=== PATIENT | male | born 1975 | race Caucasian/White ===

== ENCOUNTER 2022-04-04 17:44 | Emergency (ER) | payer OTHER ==
[~2022-04-04] VITALS: Ht 185.4 cm; Wt 83.9 kg
--- NOTE | 2022-04-04 18:41 | NUR ---
at bedside exam in progress.
[2022-04-04] MEDS ORDERED: HYDR-3972 PO (18:46)
[2022-04-04] MEDS ORDERED: HYDROCODONE/APAP 10-325 MG TABLET ONE (18:57)
[2022-04-04] MEDS ORDERED: HYDROCODONE/APAP 10-325 MG TABLET PO ONE (19:00)
--- NOTE | 2022-04-04 19:04 | NUR ---
DCD instructions and prescription given to pt. who verbalized understanding. pt. provided with tray before sent home.
== END 2022-04-04 19:17 | disposition home or self-care (01) ==
LOC: ER 17:48
DX: G89.29 Other chronic pain (principal); M25.562 Pain in left knee; M25.561 Pain in right knee; M79.672 Pain in left foot; M79.671 Pain in right foot; Z59.00 Homelessness unspecified; F17.210 Nicotine dependence, cigarettes, uncomplicated
CPT/HCPCS: A4663

== ENCOUNTER 2022-04-06 11:51 | Inpatient (IN) | payer OTHER ==
[~2022-04-06] VITALS: Ht 185.4 cm; Wt 86.8 kg
[~2022-04-06 11:51] MED LIST: HYDR-3972 PO
--- NOTE | 2022-04-06 12:48 | NUR ---
[email or web address], medical screening exam in progress
[2022-04-06] MEDS ORDERED: TETRACAINE HCL 0.5% OPHT DROP 2 ML BOTTLE ONE (12:56)
[2022-04-06] MEDS ORDERED: FLUORESCEIN SODIUM 1 MG STRIP ONE ×2 (12:56)
[2022-04-06] MEDS ORDERED: TETRACAINE HCL 0.5% OPHT DROP 2 ML BOTTLE OP ONE (13:00)
[2022-04-06] MEDS ORDERED: THIAMINE HCL 200 MG/2 ML VIAL IV ONE ×2 (13:00→14:15)
[2022-04-06] MEDS ORDERED: THIAMINE HCL 200 MG/2 ML VIAL ONE ×2 (13:00→14:25)
[2022-04-06] MEDS: FLUORESCEIN SODIUM 1 MG STRIP OP ONE ×2 (13:06→13:20)
[2022-04-06 13:17] LABS: MEAN CORPUSCULAR HEMOGLOBIN 31.9 uug (23.8-33.4); MEAN CORPUSCULAR VOLUME 93.8 fL (73.0-96.2); PLATELET COUNT (AUTO) 261 K/uL (152-348)
[2022-04-06 13:27] LABS: CARBON DIOXIDE 28 mmol/L (21-32); CHLORIDE 110 mmol/L (98-107); CREATININE 1.1 mg/dL (0.6-1.3); GLUCOSE 85 mg/dL (74-106); POTASSIUM 4.4 mmol/L (3.5-5.1); UREA NITROGEN, BLOOD 21 mg/dL (7-18)
[2022-04-06 13:36] LABS: ALANINE AMINOTRANSFERASE 82 U/L (16-63); ALKALINE PHOSPHATASE 50 U/L (50-136); ASPARTATE AMINOTRANSFERASE 42 U/L (15-37); BILIRUBIN,DIRECT < 0.1 mg/dL (0.0-0.2); BILIRUBIN,TOTAL 0.3 mg/dL (0.2-1.0); TOTAL PROTEIN, SERUM 6.7 g/dL (6.4-8.2)
--- NOTE | 2022-04-06 14:03 | NUR ---
Social work consult was requested for a patient in the emergency room for homeless resources. Patient is 46-year-old male. Patient appears alert and oriented X4. Patient presents with anxious mood and congruent affect. Patient was cooperative throughout assessment. Patient states his primary contact is his sister, Lindsey Christie, but patient does not have her phone number. Patient states he has been homeless for one year in [place]. ANAHI provided the patient resources and gave him the information for [facility] [place] [address] [place] [address] ([phone]) and [facility] [address] [facility] [address] ([phone]). ANAHI gave resources for [place] [facility] [address] [address]. Resources were placed in the chart. Homeless waiver was signed and given to the patient and a copy was placed in the chart. 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 Patient states that he has a history of heroin abuse but has been sober for 9 years. There is no toxicology report. SW intervened and educated patient regarding the harmful effects of heroin. ANHAI provided the patient resources and referrals for substance use from [facility] [address] [facility] [address] ([phone]), [facility] [address] [facility] [address] ([phone]), and [address] [address] ([phone]). Patient appeared appreciative of resources. Resources were placed in the chart. Patient states he has a history of depression. Patient states he has never seen a therapist. SW provided emotional support, validation and coping strategies. Patient denies suicidal or homicidal ideation. Patient denies visual or auditory hallucinations or delusions. ANAHI provided the patient with the mental health walk in resource at [facility] [address] [place] [address] ([phone]). Patient states he will follow-up with making his own arrangements for a living arrangement using the resources provided. Patient states he received a TAP card from his last emergency room visit two days ago.
--- NOTE | 2022-04-06 14:23 | NUR ---
Nasal swab for COVID collected and sent to LAB.
[2022-04-06] MEDS ORDERED: CEFTRIAXONE /D5W 50ML IVPB **ER PYXIS IV ONE (16:15)
--- NOTE | 2022-04-06 17:51 | NUR ---
patient to be admitted to telemetry for thrombocytosis, elevated D-Dimer, and SOB. Accepting MD is , from . pt is aware of admission plan. i called Tele, unable to transfer pt at this time due to short staffing.
[2022-04-06 17:59] LABS: ETHANOL < 3 MG/DL (0-0)
--- NOTE | 2022-04-06 19:47 | NUR ---
Assumed care of pt, pt found resting in bed. alert and oriented x3. per report, pt is c/o bilateral eye pain, described as a burning feeling/ pt denies trauma or foriegn body introduction. pt sts he was just "sitting there" when pain began, pt believes its because he was outside without sunglasses, pt does not own sunglasses. MD performed optic examination utilising flores lamp and discovered no foriegn body. Upon further examination pt admited to feeling increasingly confused and forgetful "recently" (unable to define a length of time). pt is unable to maintain vision straight forward without twitching of the eyes. MD is concerned pt is encephalopic. Labs are unremarkable. Pt awaiting admission for further workup and investigation. pt aware of plan of care.
--- NOTE | 2022-04-06 21:00 | NUR ---
pt continues to rest in bed, easily arousable, no significant change in assessment from last, continues to wait for room assignment
[2022-04-06] MEDS ORDERED: ONDANSETRON 4 MG/2 ML VIAL IV PRN (22:30)
[2022-04-06] MEDS ORDERED: HYDROCODONE/APAP 5-325MG TABLET PO PRN (22:30)
[2022-04-06] MEDS ORDERED: LORAZEPAM 0.5 MG TABLET PO PRN (22:30)
[2022-04-06] MEDS ORDERED: MAGNESIUM HYDROXIDE 30 ML LIQUID UDC PO PRN (22:30)
[2022-04-06] MEDS ORDERED: ACETAMINOPHEN 325 MG TABLET PO PRN (22:30)
--- NOTE | 2022-04-06 23:04 | NUR ---
Room assigned, report given to expressive music therapist, all questions answered. pt transported to floor via wheelchair by RN. vitals stable, NAD noted. Care assumed at bedside by expressive music therapist
--- NOTE | 2022-04-07 00:12 | NUR ---
Transfered to 3rd floor via wheelchair with no distress noted.
--- NOTE | 2022-04-07 00:15 | NUR ---
Admitted a 46 years old male with Dx of AMS. Patient AAOx3. in no apparent distress. Denies any SOB. Complain of pain on bilateral LE., described as sharp pain 8/10. IV site on right FA intact and patent. NSR on tele with HR of 60/min. Patient wishes to be DNR. CECILE Taylor made aware and obtain order to DNR status. Will carry out order. Routine admission care done. Plan of care initiated. Safety measure initiated and call light within reached.
[2022-04-07 00:50] VITALS: BP 121/81
[2022-04-07 04:24] VITALS: BP 111/75
--- NOTE | 2022-04-07 05:14 | NUR ---
Patient slept well after admission. Did not complain of further pain on bilateral LE. NSR on tele with HR of 54/min. IV site on left FA remains intact and patent. Safety measure maintained and call light within reached.
[2022-04-07 05:43] LABS: *BILIRUBIN,URIN NEGATIVE (NEGATIVE); *BLOOD, URINE NEGATIVE (NEGATIVE); *CLARITY,URINE CLEAR (CLEAR); *COLOR,URINE YELLOW (YELLOW); *KETONES,URINE NEGATIVE (NEGATIVE); *UROBILINOGEN,URINE 0.2 E.U./dl (NORMAL); LEUKOCYTE ESTERASE ,URINE NEGATIVE (NEGATIVE); NITRITE, URINE NEGATIVE (NEGATIVE); UGLUCOSE NEGATIVE (NEGATIVE)
[2022-04-07 05:52] LABS: *AMPHETAMINE, URINE NEGATIVE (NEGATIVE); *CANNABINOID, URINE NEGATIVE (NEGATIVE); *COCCAINE, URINE NEGATIVE (NEGATIVE); *OPIATE, URINE NEGATIVE (NEGATIVE); *PHENCYCLIDINE SCREEN,URINE NEGATIVE (NEGATIVE)
[2022-04-07 06:53] LABS: HEMATOCRIT 37.2 % (36.7-47.1); MEAN CORPUSCULAR HEMOGLOBIN 32.2 uug (23.8-33.4); MEAN CORPUSCULAR VOLUME 93.9 fL (73.0-96.2); PLATELET COUNT (AUTO) 243 K/uL (152-348)
[2022-04-07] MEDS ORDERED: PANTOPRAZOLE SODIUM 40 MG TABLET.DR PO SCH (07:00)
[2022-04-07 07:03] LABS: BILIRUBIN,TOTAL 0.3 mg/dL (0.2-1.0); CREATININE 0.8 mg/dL (0.6-1.3); MAGNESIUM 1.6 mg/dL (1.8-2.4); PHOSPHOROUS 3.1 mg/dL (2.5-4.9); POTASSIUM 4.1 mmol/L (3.5-5.1); TOTAL PROTEIN, SERUM 6.5 g/dL (6.4-8.2)
--- NOTE | 2022-04-07 07:15 | NUR ---
Received pt. in bed sleeping AAOx4. vitals stable no c/of pain. IV access patent.
[2022-04-07 07:40] LABS: THYROID STIMULATING HORMONE 2.563 mIU/mL (0.358-3.740)
[2022-04-07] MEDS ORDERED: FLUTICASONE PROP NASAL SPRAY 16 GM BOTTLE NS SCH (09:00)
[2022-04-07] MEDS ORDERED: FOLIC ACID 1 MG TABLET PO SCH (09:00)
[2022-04-07] MEDS ORDERED: THIAMINE HCL 100 MG TABLET PO SCH (09:00)
[2022-04-07] MEDS ORDERED: MULTIVITAMINS,THERAPEUTIC TABLET PO SCH (09:00)
[2022-04-07] MEDS ORDERED: MAGNESIUM OXIDE 400 MG TABLET PO ONE (10:00)
--- NOTE | 2022-04-07 11:00 | NUR ---
Patient all of the sudden become restless agitated and caught walking down the hallway threatening to leave AMA. Patent was seen by this morning and He's not happy to be in the hospital stating "I wanna be outside and get fresh air". Despite been educated on contraindications of leaving AMA. Patient strongly believe that He doesn't need to be here. Attending Dr. Wong notified via txt message and He stated "OK" for pt. to leave AMA. After signing proper document pt. left room ambulatory. AAOX4. refusing to get another set of vital signs before leaving.
== END 2022-04-07 11:00 | disposition left against medical advice (07) | DRG 439 ==
LOC: ER 11:52 → TELE3 04-07 00:01
PROVIDERS: ADMIT Internal Medicine; ATTEND Internal Medicine
DX: K85.90 Acute pancreatitis without necrosis or infection, unspecified (principal); E51.2 Wernicke's encephalopathy; Z59.00 Homelessness unspecified; E11.9 Type 2 diabetes mellitus without complications; I10 Essential (primary) hypertension; R74.01 Elevation of levels of liver transaminase levels; F10.20 Alcohol dependence, uncomplicated; Z91.19 Patient's noncompliance with other medical treatment and regimen; Z20.822 Contact with and (suspected) exposure to COVID-19
CPT/HCPCS: 36415; 71045; 83550; 83690; 83735; 84100; 84443; 84484; 85025; 93005; A4663; G0378; G0480; J0696; J3411; J3535; J7050